=== PATIENT | male | born 1955 ===

== ENCOUNTER 2017-05-28 06:30 | Day surgery (SDC) | payer OTHER ==
[2017-05-28 07:14] VITALS: BMI 26.6
[2017-05-28 07:38] VITALS: TEMP 97.5
[2017-05-28] MEDS ORDERED: Lactated Ringer's 1,000 ML IV ONE (08:00)
[2017-05-28] MEDS ORDERED: Propofol 10 mg/ml Inj (20 ML) ONE (08:01)
--- NOTE | 2017-05-28 08:06 | CP.SDSHP ---
Same Day Surgery H & P - History Proposed Procedure: egd. colonoscopy Pre-Op Diagnosis: heartburn. epigastric pain. h/o colon polyps - Previous Medical/Surgical History Misc: Other (BPH, colon polyps) - Allergies Allergies: Allergies No Known Allergies Allergy (Verified 05/28/17 07:13) - Physical Exam Vital Signs: Vital Signs 05/28/17 07:28 Temperature 97.5 F L Pulse Rate 71 Respiratory 19 Rate Blood Pressure 138/80 O2 Sat by Pulse 99 Oximetry Mental Status: Alert & Oriented x3 Neuro: WNL Heart: WNL Lungs: WNL GI: WNL - Impression Impression: heartburn. epigastric pain. h/o colon polyps Pt. Evaluated Today:Candidate for Anesthesia & Procedure: Yes - Date & Time Date: 05/28/17 Time: 08:06 Short Stay Discharge - Short Stay Discharge Admitting Diagnosis/Reason for Visit: EPIGASTRIC PAIN / HEARTBURN /P/H COLONIC POLYPS Disposition: HOME/ ROUTINE
[2017-05-28] MEDS ORDERED: Pantoprazole 40 mg EC Tab PO ONE (08:45)
[2017-05-28 09:40] VITALS: O2SAT 100
[2017-05-28 09:42] VITALS: BP 127/63; PULSE 65; RESP 12
== END 2017-05-28 10:00 | disposition home or self-care (01) ==
LOC: C.ENDO 06:30
PROVIDERS: ATTEND Internal Medicine Gastroenterology
DX: D12.0 Benign neoplasm of cecum (principal); Z86.010 Personal history of colon polyps; K44.9 Diaphragmatic hernia without obstruction or gangrene; K29.60 Other gastritis without bleeding
CPT/HCPCS: 43239; 45388; 88305; 88312; 88342; J2001; J2704; J3010; J7120